=== PATIENT | female | born 1990 | race Caucasian/White ===

== ENCOUNTER 2022-05-10 00:20 | Emergency (ER) | payer MEDICAID ==
[~2022-05-10] VITALS: Ht 154.9 cm; Wt 70.3 kg
--- NOTE | 2022-05-10 01:17 | NUR ---
covid swab collected
--- NOTE | 2022-05-10 02:14 | NUR ---
CALLED XRAY AGAIN
[2022-05-10 03:14] VITALS: BP 127/77
[2022-05-10] MEDS ORDERED: AZIT250T13 PO (03:32)
== END 2022-05-10 03:51 | disposition home or self-care (01) ==
LOC: ER 00:24
DX: J20.9 Acute bronchitis, unspecified (principal); Z20.822 Contact with and (suspected) exposure to COVID-19; R03.0 Elevated blood-pressure reading, without diagnosis of hypertension
CPT/HCPCS: 71045; 87426; 99284; C9803